=== PATIENT | male | born 1950 | race Caucasian/White ===

== ENCOUNTER → 2017-05-20 | Day surgery (SDC) | payer MEDICARE, OTHER ==
[~2017-05-20] MED LIST: ACETAMINOPHEN 1000 MG/100 ML 100 ML IV ONE; ASPI81TA82 PO; BUPIVACAINE/EPINEPHRINE 0.25% 50 ML VIAL ONE; CARI350T19 PO; DIAZ10GE PO; ESZO3 PO; HYDR10TA16 PO; LACTATED RINGER'S 1000 ML INJ 1,000 ML ONE; MIDAZOLAM HCL 2 MG/2 ML VIAL ONE; MONT10TA2 PO; MULTIDOPHILUS PO; ONDANSETRON HCL 4 MG/2 ML VIAL IV PUSH ONE; PEPPOIL PO; PROPOFOL 200 MG/20 ML AMP IV ONE; SIMV20 PO; TRIA3AER; ZOVI400T15 PO; ceFAZolin 2 GM PREMIX 50 ML ONE
--- NOTE | 2017-05-20 14:57 | TN ---
cc: ELLA SANABRIA M.D. DATE OF SURGERY: 05/20/2017 PREOPERATIVE DIAGNOSIS Bilateral inguinal hernias. POSTOPERATIVE DIAGNOSIS Bilateral inguinal hernias. PROCEDURE Laparoscopic repair bilateral inguinal hernia with mesh. SURGEON Dr. Ella Sanabria. ANESTHESIA General. INDICATIONS A 66-year-old gentleman with progressively increasing size right inguinal hernia. He had a previous left-sided varicocele surgery and has a hernia on the left as well. Plans were made for repair via laparoscopic approach. INTRAOPERATIVE FINDINGS Bilateral indirect inguinal hernias. Bilateral spermatic cord lipomas. ESTIMATED BLOOD LOSS Minimal. DESCRIPTION OF PROCEDURE IN DETAIL The patient was identified as Luke Avery, taken to the operating room and placed in supine position. Sequential compression devices were placed on bilateral lower extremities. Following the induction of adequate general anesthesia the patient's lower abdomen was prepped and draped in the usual sterile fashion with Betadine. A timeout procedure was performed. Following completion of the timeout procedure to everyone's satisfaction within the room, local anesthetic was injected in the infraumbilical midline at the two infraumbilical midline trocar sites. Incision was carried out with a scalpel and dissection continued posteriorly to the level of the anterior rectus fascia on the right side. This was incised in a vertical fashion allowing for development of a preperitoneal plane with the surgeon's finger. The posterior rectus muscle was directed towards the pubic symphysis. With the patient in slight Trendelenburg position a preperitoneal dissecting balloon was placed in the preperitoneal space and its balloon inflated under direct laparoscopic visualization to a total of approximately 35 pumps. This allowed for identification of pubic symphysis, bilateral Eric's ligaments and inferior epigastric vessels. The balloon was desufflated and removed and the structural balloon trocar placed in the preperitoneal space, its balloon inflated with CO2 insufflation until a level of 11 mmHg ensued. Two infraumbilical midline 5 mm trocars were then placed in the preperitoneal space under direct laparoscopic view after incision of the skin with a scalpel. The attention was turned first to the right side. Eric's ligament and the inferior epigastric vessels were identified. There was no evidence of a direct hernia defect or femoral hernia defect. Blunt dissection lateral and posterior to the spermatic cord was performed. The anteromedial surface was examined and indirect inguinal hernia sac was reduced from the inguinal canal to the base of the spermatic cord. Posterolaterally a small spermatic cord lipoma was withdrawn from the inguinal canal. The hernia defect was identified and photographed. A 4 x 6 inch piece of Atrium ProLite mesh was cut with an anterolateral slit placed around the spermatic cord and tacked into position with a tacking device. Tacks were placed to approximate the anterolateral slit and on the inferolateral border of Eric's ligament. A 2 x 5 inch piece of the mesh was placed across the anterolateral slit and held in position with tacks placed superolateral, inferomedial and superomedial. Photographs were taken of the completed repair. Attention was turned to the left side. Similar blunt dissection ensued and almost identical findings were found. The graspers were used to reduce an indirect inguinal hernia sac from the inguinal canal to the base of the spermatic cord. A small spermatic cord lipoma was withdrawn from the inguinal canal into the preperitoneal space. A 4 x 6 inch piece of the Atrium ProLite mesh was cut with an anterolateral slit, placed around the spermatic cord and tacked into position with a tacking device. Tacks were placed to approximate the anterolateral slit and on the inferolateral border of Eric's ligament. A 2 x 5 inches piece of the mesh was placed across the anterolateral slit and held in position with the tacking device, placing tacks superolateral, inferomedial and superomedial. Care was taken to avoid tack placement inferolaterally to avoid cutaneous nerve injury. The preperitoneal space was filled with the remaining local anesthetic. Trocars were removed under direct visualization. There was no evidence of bleeding from the trocar sites. During desufflation of the preperitoneal space the inferolateral mesh was held against the abdominal wall. The infraumbilical trocars were removed. The anterior rectus fascial incision was closed with a running 2-0 Vicryl suture. Port site skin incisions were approximated with 4-0 Monocryl subcuticular sutures. Dressings were applied with Mastisol and half-inch brown Steri-Strips. An athletic supporter was placed. The patient tolerated the procedure without apparent complication. Sponge, needle and instrument counts were correct at the end of the case. This procedure was assisted by my nurse practitioner. The skill set of an SYSTEM SPECIALIST was medically necessary to provide increased efficiency and safety in the completion of this complex procedure. The surgical technologist was in the back table providing appropriate instrumentation while the nurse practitioner directly assisting me through the entirety of the procedure. MD MARGARITO Rodriguez/ISABELL /2:19 PM /2:34 PM
== END | disposition home or self-care (01) ==
LOC: ESDC 11:23
PROVIDERS: ATTEND Surgery Trauma Surgery
DX: K40.20 Bilateral inguinal hernia, without obstruction or gangrene, not specified as recurrent (principal)
CPT/HCPCS: 00840; 49650; C1727; C1781; J0131; J0690; J2250; J2405; J3010; J7120